=== PATIENT | male | born 1985 | race African-American/Black ===

== ENCOUNTER 2022-02-14 01:56 | Emergency (ER) | payer SELFPAY ==
[2022-02-14] MEDS ORDERED: Ketorolac Tromethamine 30 MG/ML VIAL ONE ×2 (02:27)
[2022-02-14] MEDS ORDERED: Ciprofloxacin 0.3% Ophth Soln 2.5 ml Bottle FS SCH (02:30)
[2022-02-14] MEDS ORDERED: Sulfameth/Trimethoprim DS 800-160mg TAB ONE (02:31)
== END 2022-02-14 02:46 | disposition home or self-care (01) ==
LOC: CSHERS 01:56
DX: H60.12 Cellulitis of left external ear (principal); K21.9 Gastro-esophageal reflux disease without esophagitis
CPT/HCPCS: 69000; 96372; J1885

== ENCOUNTER 2022-03-01 21:11 | Emergency (ER) | payer SELFPAY | END 2022-03-02 02:05 | disposition home or self-care (01) | LOC: CSHERS 21:11 | DX: M79.601 Pain in right arm (principal) ==